=== PATIENT | female | born 1975 | race African-American/Black ===

== ENCOUNTER 2022-11-29 00:30 | Emergency (ER) | payer OTHER, SELFPAY ==
[2022-11-29 01:42] LABS: #Eosinphils 0.1 10x3/uL (0.0-0.5); #Monocytes 0.9 10x3/uL (0.0-1.1); #Neutrophils 4.8 10x3/uL (1.5-8.4); %Basophils 0.2 % (0.0-2.0); %Eosinophils 0.9 % (0.0-6.0); %Lymphocytes 28.8 % (18.0-47.0); %Monocytes 10.8 % (0.0-10.0); %Neutrophils 59.1 % (40.0-75.0); Hematocrit 30.8 % (34.9-44.5); Hemoglobin 10.3 g/dL (12.0-15.5); Mean Corpuscular HGB CONC 33.4 g/dL (32.0-36.0); Mean Corpuscular Hemoglobin 27.8 pg (27.0-33.0); Mean Platelet Volume 9.9 fl (7.4-10.4); Platelet Count 236 10x3/uL (150-450); RBC Distribution Width 14.6 % (11.5-14.5); Red Blood Cell (RBC) Count 3.71 10x6/uL (3.90-5.03); White Blood Cell (WBC) Count 8.2 10x3/uL (3.5-10.5)
[2022-11-29] MEDS ORDERED: levETIRAcetam 500 MG/5 ML VIAL ONE (01:55)
[2022-11-29 01:57] LABS: Bilirubin Neg (Negative); Blood, Urine Negative (Negative); Clarity Slightly Cloudy (Clear); Glucose, Urine (Dipstick) Normal (Negative); Ketone, Urine Negative (Negative); Leukocyte 100 (Negative); Nitrite Negative (Negative); Protein, Urine (Dipstick) Negative (Neg-Trace); Specific Gravity, Urine 1.015 (1.005-1.030); Urobilinogen Normal mg/dL (Less than 2)
[2022-11-29 01:58] LABS: ALT (SGPT) 10 U/L (8-55); AST (SGOT) 16 U/L (5-34); Albumin 3.5 g/dL (3.5-5.0); Alkaline Phosphatase 52 U/L (40-110); Anion Gap 13 mmol/L (10-20); BUN (Urea Nitrogen) 7 mg/dL (7.0-18.7); Bilirubin, Total 0.2 mg/dL (0.2-1.2); Calc. Creatinine Clearance 0 mL/min (70-130); Calcium 8.6 mg/dL (7.8-10.44); Carbon Dioxide 23 mmol/L (22-29); Chloride 109 mmol/L (98-107); Estimated GFR 111; Globulin 2.2 g/dL (2.4-3.5); Glucose 93 mg/dL (70-105); Potassium 3.4 mmol/L (3.5-5.1); Protein, Total 5.7 g/dL (6.0-8.3); Sodium 142 mmol/L (136-145)
[2022-11-29 02:04] LABS: Troponin I Less than 0.010 ng/mL (< 0.028)
[2022-11-29 02:20] LABS: RBC/HPF 0-3 HPF (0-3)
[2022-11-29 02:21] LABS: Bacteria/HPF 2+ HPF (None Seen); CAUTI Indications for Culture Pelvic or flank pain; Trichomonas/HPF 2+ HPF (None Seen)
[2022-11-29 02:22] LABS: Urine Culture Reflex No No
[2022-11-29] MEDS ORDERED: Acetaminophen 500 MG TAB ONE (04:30)
[2022-11-29 04:56] LABS: BHCG - Serum Negative (NEGATIVE); Pregs Control Background? CLEAR/WHITE (CLR/WHITE); Pregs Control Bar Appear? YES (CONTROL BAR)
[2022-11-29] MEDS ORDERED: Acetaminophen 325 MG TAB ONE (10:04)
[2022-11-29] MEDS ORDERED: metroNIDAZOLE 500 MG TAB ONE (10:25)
== END 2022-11-29 10:06 ==
LOC: CSHERS 00:30
DX: G40.909 Epilepsy, unspecified, not intractable, without status epilepticus (principal); A59.00 Urogenital trichomoniasis, unspecified; R20.2 Paresthesia of skin; E11.9 Type 2 diabetes mellitus without complications; F17.210 Nicotine dependence, cigarettes, uncomplicated; Z79.899 Other long term (current) drug therapy
CPT/HCPCS: 36415; 70450; 70551; 80053; 81001; 83735; 84484; 84703; 85025; 93005; 96365; J1953